=== PATIENT | female | born 1975 | race Caucasian/White ===

== ENCOUNTER → 2021-08-04 15:12 | Outpatient (CLI) | payer OTHER, SELFPAY ==
[2021-08-04 16:21] LABS: Add Manual Diff / Slide Review NO; Basophils Absolute Auto 100 /uL (0-100); Basophils Percent Auto 0.8 % (0-2); Eosinophils Absolute Auto 600 /uL (0-450); Eosinophils Percent Auto 7.1 % (2-4); Hematocrit 33.9 % (36-46); Hemoglobin 10.8 g/dL (12.0-16.0); Lymphocytes Absolute Auto 2600 /uL (1100-4500); Mean Corpuscular HGB Conc 31.8 % (30-36); Mean Corpuscular Hemoglobin 20.5 PG (26-34); Mean Corpuscular Volume 64.4 fL (80-100); Monocytes Absolute Auto 700 /uL (0-900); Monocytes Percent Auto 8.7 % (3-14); Neutrophils Absolute Auto 4300 /uL (1500-7000); Neutrophils Percent Auto 51.4 % (50-75); Platelet Count 319 X10^3/uL (150-400); Red Blood Cell Count 5.26 X10^6/uL (4.0-5.2); Red Cell Distribution Width 15.9 % (11.6-14.8); White Blood Cell Count 8.3 X10^3/uL (4.5-11.0)
[2021-08-04 16:33] LABS: Alanine Aminotransferase 27 IU/L (<35); Albumin 4.4 g/dL (3.5-5.0); Albumin Globulin Ratio 1.6 (1.0-2.8); Alkaline Phosphatase 49 U/L (38-126); Aspartate Aminotransferase 27 IU/L (14-36); Bilirubin Total 0.3 mg/dL (0.2-1.3); Blood Urea Nitrogen 15 mg/dL (7-17); Calcium 9.6 mg/dL (8.4-10.2); Carbon Dioxide 29 mmol/L (22-32); Chloride 102 mmol/L (98-107); Estimated Glomerular Filt Rate 59.4 mL/min (>60); Globulin 2.8 g/dL (1.7-4.1); Glucose 101 mg/dL (70-100); HEMOLYSIS < 15 (0-50); Potassium 4.2 mmol/L (3.4-5.1); Sodium 140 mmol/L (137-145); Total Protein 7.2 g/dL (6.3-8.2)
[2021-08-04 17:33] LABS: Hypochromasia 2+; Microcytosis 2+; Polychromasia 1+
[2021-08-04 17:37] LABS: Folate 15.9 ng/mL (2.76-20.0); Vitamin B12 606 pg/mL (239-931)
[2021-08-04 18:10] LABS: TSH w/ Reflex to FT4 1.69 uIU/mL (0.47-4.68)
== END ==
PROVIDERS: PCP Registered Nurse; Referring Provider Registered Nurse; Visit Provider Registered Nurse
DX: D56.3 Thalassemia minor (principal); R00.2 Palpitations; R53.83 Other fatigue
CPT/HCPCS: 36415; 80053; 82607; 82746; 84443; 85025

== ENCOUNTER → 2021-08-26 14:57 | Outpatient (CLI) | payer OTHER, SELFPAY ==
--- NOTE | 2021-08-26 14:58 | DI.US.S_ITS ---
ULTRASOUND OF LEFT BREAST: 08/26/2021 CLINICAL: Focal left breast pain. Comparison is made to exams dated: 08/26/2021 mammogram - [facility], 07/08/2018 mammogram, and 05/10/2019 ultrasound - outside location. Ultrasound of the left breast was performed. Hou scale images of the real-time examination were reviewed. No significant abnormalities were seen sonographically in the left breast. Specifically, no finding to explain the patient's pain. IMPRESSION: NEGATIVE There is no sonographic explanation for patient's pain and NO evidence of malignancy. No intraparenchymal explanation for vague density in inferior breast on mammogram. This is felt to be incidental and artifact. Return to annual mammogram screening schedule is recommended. Findings and recommendations were conveyed to the patient at time of exam. This exam was interpreted at Station ID: [id number]. Electronically Signed By: Lisa segovia/:08/26/2021 16:20:57 letter sent: Normal Exam Ultrasound BI-RADS: 1 Negative
--- NOTE | 2021-08-26 14:58 | DI.MG.S_ITS ---
BILATERAL DIGITAL DIAGNOSTIC MAMMOGRAM 3D/2D: 08/26/2021 CLINICAL: Breast pain. Comparison is made to exams dated: 05/10/2019 ultrasound and 07/08/2018 mammogram - outside location. There are scattered fibroglandular elements in both breasts. There is a possible, ill defined, vague 4.7 cm irregular low density asymmetry with an indistinct margin in the left breast anterior depth inferior region seen on the mediolateral oblique view only. This correlates partially to the area of reported diffuse inferior pain. No other significant masses, calcifications, or other findings are seen in either breast. IMPRESSION: INCOMPLETE: NEEDS ADDITIONAL IMAGING EVALUATION The possible 4.7 cm irregular low density asymmetry in the left breast may correlate to the patient symptoms, but remains indeterminate. An ultrasound is recommended. This was performed immediately following this exam. This exam was interpreted at Station ID: [id number]. NOTE: For mammograms, a report in lay terms will be sent to the patient. Approximately 15% of breast malignancies will not be visualized mammographically. In the management of a palpable breast mass, a negative mammogram must not discourage biopsy of a clinically suspicious lesion. Electronically Signed By: Lisa segovia/:08/26/2021 15:55:23 ACR BI-RADS Category 0: Incomplete [id number]
== END ==
PROVIDERS: PCP Registered Nurse; Referring Provider Registered Nurse; Visit Provider Registered Nurse
DX: N64.4 Mastodynia (principal); N64.89 Other specified disorders of breast
CPT/HCPCS: 76642; 77066; G0279

== ENCOUNTER → 2021-12-10 09:40 | Outpatient (CLI) | payer OTHER, SELFPAY ==
[2021-12-11 08:54] LABS: Interpretation Negative (Negative)
== END ==
PROVIDERS: PCP Family Medicine; Referring Provider Registered Nurse; Visit Provider Registered Nurse
DX: K21.9 Gastro-esophageal reflux disease without esophagitis (principal); K30 Functional dyspepsia; R11.2 Nausea with vomiting, unspecified
CPT/HCPCS: 83013

== ENCOUNTER → 2022-03-23 07:53 | Outpatient (CLI) | payer OTHER, SELFPAY | PROVIDERS: PCP Family Medicine; Referring Provider Surgery; Visit Provider Surgery | DX: Z53.20 Procedure and treatment not carried out because of patient's decision for unspecified reasons (principal) ==

== ENCOUNTER → 2023-06-25 09:25 | Outpatient (CLI) | payer OTHER, SELFPAY ==
[2023-06-25 10:40] LABS: Basophils Absolute Auto 100 /uL (0-100); Basophils Percent Auto 0.8 % (0-2); Eosinophils Absolute Auto 600 /uL (0-450); Eosinophils Percent Auto 6.4 % (2-4); Hemoglobin 11.6 g/dL (12.0-16.0); Lymphocytes Absolute Auto 3000 /uL (1100-4500); Lymphocytes Percent Auto 34.1 % (25-40); Mean Corpuscular HGB Conc 32.3 % (30-36); Mean Corpuscular Hemoglobin 20.5 PG (26-34); Mean Corpuscular Volume 63.5 fL (80-100); Monocytes Absolute Auto 800 /uL (0-900); Monocytes Percent Auto 9.3 % (3-14); Neutrophils Absolute Auto 4300 /uL (1500-7000); Neutrophils Percent Auto 49.4 % (50-75); Platelet Count 286 X10^3/uL (150-400); Red Blood Cell Count 5.66 X10^6/uL (4.0-5.2); Red Cell Distribution Width 16.5 % (11.6-14.8); White Blood Cell Count 8.7 X10^3/uL (4.5-11.0)
[2023-06-25 10:44] LABS: Add Manual Diff / Slide Review SLIDE REVIEW
[2023-06-25 10:58] LABS: Alanine Aminotransferase 35 IU/L (<35); Albumin 4.4 g/dL (3.5-5.0); Albumin Globulin Ratio 1.5 (1.0-2.8); Alkaline Phosphatase 46 U/L (38-126); Aspartate Aminotransferase 27 IU/L (14-36); BUN Creatinine Ratio 12.7 (6-22); Bilirubin Total 0.7 mg/dL (0.2-1.3); Blood Urea Nitrogen 10 mg/dL (7-17); Calcium 9.9 mg/dL (8.4-10.2); Carbon Dioxide 27 mmol/L (22-32); Chloride 105 mmol/L (98-107); Cholesterol 199 mg/dL (140-199); Estimated Glomerular Filt Rate > 60 mL/min (>60); Glucose 99 mg/dL (70-100); HDL Cholesterol 54 mg/dL (40-60); HEMOLYSIS < 15 (0-50); LDL Cholesterol Calculated 115 mg/dL (<100); Sodium 139 mmol/L (137-145); Total Protein 7.4 g/dL (6.3-8.2); Triglycerides 149 mg/dL (35-150)
[2023-06-25 11:03] LABS: Potassium 5.5 mmol/L (3.4-5.1)
[2023-06-25 11:14] LABS: Acanthocytes 1+; Microcytosis 2+; Ovalocytes 3+; Spherocytes 1+; Tear Drop Cells 1+
[2023-06-25 11:15] LABS: Anisocytosis 2+; Hypochromasia 1+; Target Cells 1+
[2023-06-25 11:24] LABS: TSH w/ Reflex to FT4 2.99 uIU/mL (0.47-4.68)
== END ==
PROVIDERS: PCP Family Medicine; Referring Provider Family Medicine; Visit Provider Family Medicine
DX: R00.2 Palpitations (principal); D56.3 Thalassemia minor; K21.9 Gastro-esophageal reflux disease without esophagitis
CPT/HCPCS: 36415; 80053; 80061; 84443; 85025

== ENCOUNTER → 2024-01-06 09:50 | Outpatient (CLI) | payer OTHER, SELFPAY ==
--- NOTE | 2024-01-06 09:52 | DI.US.S_ITS ---
PROCEDURE: US ABDOMEN LIMITED INDICATIONS: Chronic abdominal pain TECHNIQUE: Real-time scanning was performed of the abdominal and retroperitoneal organs, with image documentation. COMPARISON: None. FINDINGS: Liver: Liver is normal in size and demonstrates diffusely increased echotexture. Portal vein is patent with hepatopetal flow. Gallbladder: There are gallstones. Gallbladder wall is borderline thickened measuring 3.3 mm. No pericholecystic fluid or sonographic Cohen's sign. Biliary ducts: Intrahepatic bile ducts are non-dilated. Extrahepatic bile duct caliber measures 3.6 mm. Normal is 6-7 mm or less in diameter, or 10 mm or less post-cholecystectomy. Pancreas: Visualized portions of the pancreas are sonographically normal. Right Kidney: Right kidney measures 10.7 cm long; left kidney measures 10.7 cm long. No hydronephrosis or nephrolithiasis. No solid masses. IVC: Intrahepatic inferior vena cava is patent. Miscellaneous: No free abdominal fluid. IMPRESSION: 1. Diffusely increased hepatic echotexture. This finding is most likely secondary to hepatic fatty infiltration although other hepatocellular disease may have a similar appearance. Recommend clinical correlation. 2. Cholelithiasis. There is borderline gallbladder wall thickening. Consider HIDA scan if there is clinical suspicion for acute cholecystitis. Dictated by: Dominik Banegas M.D. on 01/06/2024 at 12:55 Approved by: Dominik Banegas M.D. on 01/06/2024 at 12:59
== END ==
PROVIDERS: PCP Family Medicine; Referring Provider Family Medicine; Visit Provider Family Medicine
DX: K30 Functional dyspepsia (principal); K80.20 Calculus of gallbladder without cholecystitis without obstruction; R10.9 Unspecified abdominal pain; G89.29 Other chronic pain
CPT/HCPCS: 76705

== ENCOUNTER → 2024-01-26 14:28 | Outpatient (CLI) | payer OTHER, SELFPAY ==
--- NOTE | 2024-02-03 13:39 | DIET.OUTPTC ---
Dietary Outpatient Consultation Note Consultation Date: 01/26/2024 Assessment: 48 y F referred to dietitian for fatty liver disease. Gela is very nutritionally knowledgeable. Is looking for confirmation that she is eating the right way for weight management and fatty liver disease. After assessment of her dietary intake and caloric needs, I believe she is actively eating a balanced diet that aligns with her goal of weight management and is meeting the recommendations for physical activity. However, she has not been able to lose weight with dietary and physical activity. She has experienced intense epigastric pain she associates with gallstone in the past. During these times she eats a bland diet for 1-2 weeks. Does not eat red meat. Diet recall: B-chicken broth (boils whole chicken and drinks ~1 cup), 1/2 c oatmeal (sometimes with 2 tbsp seeds i.e. pumpkin, mary jo, flax), fruit, black tea snack 1: muffin, no sugar added tea latte OR a smoothie with yogurt, fruit, and hemp/mary jo seeds L-Chicken salad OR lentil soup OR pantoja and nut salad Snack 2: 1 oz cheese and 1 serving crackers Dinner: Fish 1-2x/wk with 2-3 carb serving and veg, OR stirfry with rice and veg, OR vegetable or lentil soup OR beans and rice No alcohol intake drinks only water or no sugar added teas Activity: Pilates 3x/week 1 hour, yoga 1x/wk 1 hour, 12k steps daily, PT 2x/wk ~1 hour Ht: 5 ft 7 in Wt: 214 lb BMI: 33.5 UBW: limited recent wt hx Nutrition Diagnosis: No nutritional dx at this time Interventions: 1. Provided MNT for fatty liver disease and weight management; pt already knowledgeable Goals: 1. Add protein source back to breakfast 2. Complete a diet recall for 1-2 weekdays and 1-2 weekends to assess caloric intake and fat intake based on EER discussed. EER: [id number] kcals/day (MSJ x1.2-1.3 AF; baseline MSJ 1730 kcals) 65-75 g protein/day (0.8 g/kg adjusted IBW) Monitoring/Evaluations: f/u prn Electronically Signed by: Iris Eden 02/03/24 13:[address] [id number]
== END ==
PROVIDERS: PCP Family Medicine; Referring Provider Family Medicine; Visit Provider Family Medicine
DX: K76.0 Fatty (change of) liver, not elsewhere classified (principal); Z71.3 Dietary counseling and surveillance; Z68.33 Body mass index [BMI] 33.0-33.9, adult
CPT/HCPCS: 97802

== ENCOUNTER → 2024-02-08 07:54 | Outpatient (CLI) | payer OTHER, SELFPAY ==
--- NOTE | 2024-02-08 07:55 | DI.NM.S_ITS ---
PROCEDURE: NM HIDA NO EJECTION FRACTION RADIOPHARMACEUTICAL: 5.3 mCi Tc-99m mebrofenin IV. INDICATIONS: Gallstones TECHNIQUE: Following intravenous administration of Tc-99m mebrofenin, sequential anterior abdominal images were obtained through at least 60 minutes. COMPARISON: [facility], , ABDOMEN LIMITED, 01/06/2024, 10:31. FINDINGS: There is normal tracer uptake and excretion by the liver. There is delayed visualization of gallbladder, which is initially visualized at 60 minutes. Delayed images were obtained at 3 hour after tracer administration with filling of gallbladder. There is normal visualization of intrahepatic ducts, common bile duct, and normal tracer excretion into duodenum. IMPRESSION: 1. There is filling of gallbladder. No finding to suggest acute cholecystitis. 2. Filling of gallbladder is however, slightly delayed, which could indicate chronic cholecystitis. Recommend clinical correlation. Dictated by: Dominik Banegas M.D. on 02/08/2024 at 11:57 Approved by: Dominik Banegas M.D. on 02/08/2024 at 12:02
== END ==
PROVIDERS: PCP Family Medicine; Referring Provider Family Medicine; Visit Provider Family Medicine
DX: K80.20 Calculus of gallbladder without cholecystitis without obstruction (principal)
CPT/HCPCS: 78226; A9537

== ENCOUNTER → 2024-02-29 11:54 | Outpatient (CLI) | payer OTHER, SELFPAY ==
[2024-02-29 14:09] LABS: HEMOLYSIS < 15 (0-50); Iron 102 ug/dL (37-170)
[2024-02-29 14:14] LABS: Alanine Aminotransferase 29 IU/L (<35); Albumin 4.7 g/dL (3.5-5.0); Albumin Globulin Ratio 1.6 (1.0-2.8); Alkaline Phosphatase 50 U/L (38-126); Aspartate Aminotransferase 32 IU/L (14-36); BUN Creatinine Ratio 12.3 (6-22); Bilirubin Total 0.7 mg/dL (0.2-1.3); Blood Urea Nitrogen 10 mg/dL (7-17); Calcium 8.9 mg/dL (8.4-10.2); Carbon Dioxide 28 mmol/L (22-32); Chloride 106 mmol/L (98-107); Estimated Glomerular Filt Rate > 60 mL/min (>60); Globulin 2.9 g/dL (1.7-4.1); Glucose 92 mg/dL (70-100); HEMOLYSIS < 15 (0-50); Potassium 3.7 mmol/L (3.4-5.1); Sodium 140 mmol/L (137-145); Total Protein 7.6 g/dL (6.3-8.2)
[2024-02-29 14:22] LABS: Percent Iron Saturation 31 % (15-50); Total Iron Binding Capacity 325 ug/dL (265-497); Transferrin 264 mg/dL (206-381)
[2024-02-29 14:49] LABS: Ferritin 31 ng/mL (6-137)
[2024-03-01 01:42] LABS: HBsAg Screen Negative (Negative); Hepatitis A Antibody IgM Negative (Negative); Hepatitis B Core Antibody IgM Negative (Negative); Hepatitis C Antibody Non Reactive (Non Reactive)
[2024-03-01 05:03] LABS: Alpha 1 Anti Trypsin 131 mg/dL (101-187)
[2024-03-01 07:36] LABS: Alpha Fetoprotein 1.8 ng/mL (0.0-6.4)
[2024-03-01 09:32] LABS: Rubeola Measles IgG > 300.0 AU/mL (Immune >16.4); Varicella IgG Antibody 1194 index (Immune >165)
[2024-03-01 12:55] LABS: Mumps Virus IgG Antibody 89.2 AU/mL (Immune >10.9)
== END ==
PROVIDERS: PCP Family Medicine; Referring Provider Family Medicine; Visit Provider Family Medicine
DX: Z01.84 Encounter for antibody response examination (principal); Z11.1 Encounter for screening for respiratory tuberculosis; K76.0 Fatty (change of) liver, not elsewhere classified; K21.9 Gastro-esophageal reflux disease without esophagitis
CPT/HCPCS: 80053; 80074; 82103; 82105; 82728; 83540; 83550; 86015; 86480; 86615; 86735; 86762; 86765; 86787; 87340

== ENCOUNTER → 2024-03-11 08:49 | Outpatient (CLI) | payer OTHER, SELFPAY ==
[2024-03-11 09:59] LABS: Hemoglobin A1C% w Est Avg Glu 5.2 % (4.0-6.0)
[2024-03-11 10:18] LABS: Cholesterol 178 mg/dL (140-199); HDL Cholesterol 59 mg/dL (40-60); LDL Cholesterol Calculated 98 mg/dL (<100); Triglycerides 105 mg/dL (35-150)
[2024-03-11 10:38] LABS: Free T3, Triiodothyronine Free 3.34 pg/mL (2.77-5.27); Free T4, Direct Thyroxine 0.93 ng/dL (0.78-2.19)
[2024-03-11 10:52] LABS: Thyroid Stimulating Hormone 1.89 uIU/mL (0.47-4.68)
[2024-03-11 11:07] LABS: Vitamin B12 290 pg/mL (239-931)
== END ==
PROVIDERS: PCP Family Medicine; Referring Provider Advanced Practice Midwife; Visit Provider Advanced Practice Midwife
DX: Z00.00 Encounter for general adult medical examination without abnormal findings (principal); K76.0 Fatty (change of) liver, not elsewhere classified; R53.83 Other fatigue; Z78.0 Asymptomatic menopausal state; Z83.49 Family history of other endocrine, nutritional and metabolic diseases; Z01.84 Encounter for antibody response examination
CPT/HCPCS: 36415; 80061; 82607; 83036; 84439; 84443; 84481; 86376; 86706; 86800

== ENCOUNTER → 2025-09-21 08:03 | Outpatient (CLI) | payer OTHER, SELFPAY ==
[2025-09-21 09:34] LABS: Add Manual Diff / Slide Review NO; Hematocrit 36.2 % (36-46); Hemoglobin 11.5 g/dL (12.0-16.0); Lymphocytes Absolute Auto 3200 /uL (1100-4500); Mean Corpuscular HGB Conc 31.9 % (30-36); Mean Corpuscular Hemoglobin 20.5 PG (26-34); Mean Corpuscular Volume 64.4 fL (80-100); Platelet Count 272 X10^3/uL (150-400)
[2025-09-21 09:43] LABS: Ovalocytes 1+
[2025-09-21 09:48] LABS: Hemoglobin A1C% w Est Avg Glu 5.5 % (4.0-6.0)
[2025-09-21 10:11] LABS: Iron 97 ug/dL (37-170)
[2025-09-21 10:12] LABS: Alanine Aminotransferase 35 IU/L (<35); Albumin 4.4 g/dL (3.5-5.0); Albumin Globulin Ratio 1.4 (1.0-2.8); Alkaline Phosphatase 58 U/L (38-126); Blood Urea Nitrogen 10 mg/dL (7-17); Calcium 9.6 mg/dL (8.4-10.2); Carbon Dioxide 26 mmol/L (22-32); Chloride 108 mmol/L (98-107); Cholesterol 170 mg/dL (140-199); Estimated Glomerular Filt Rate > 60 mL/min (>60); Globulin 3.1 g/dL (1.7-4.1); Glucose 106 mg/dL (70-99); HDL Cholesterol 50 mg/dL (40-60); HEMOLYSIS < 15 (0-50); Potassium 4.6 mmol/L (3.4-5.1); Sodium 143 mmol/L (137-145); Total Protein 7.5 g/dL (6.3-8.2); Triglycerides 161 mg/dL (35-150)
[2025-09-21 10:29] LABS: Free T3, Triiodothyronine Free 3.70 pg/mL (2.77-5.27); Free T4, Direct Thyroxine 1.06 ng/dL (0.78-2.19)
[2025-09-21 10:43] LABS: Thyroid Stimulating Hormone 2.99 uIU/mL (0.47-4.68)
[2025-09-21 10:48] LABS: Ferritin 57 ng/mL (11-264)
== END ==
PROVIDERS: PCP Family Medicine; Referring Provider Family Medicine; Visit Provider Naturopath
DX: Z12.11 Encounter for screening for malignant neoplasm of colon (principal); Z83.49 Family history of other endocrine, nutritional and metabolic diseases
CPT/HCPCS: 36415; 80053; 80061; 82728; 83036; 83540; 84439; 84443; 84481; 85025